=== PATIENT | male | born 1975 | race Caucasian/White ===

== ENCOUNTER 2016-07-12 06:16 | Emergency (ER) | payer SELFPAY ==
[2016-07-12 06:47] VITALS: BP 169/128; PULSE 84; RESP 16; TEMP 97.8; O2SAT 99
== END 2016-07-12 07:29 | disposition left against medical advice (07) ==
LOC: C.ER 06:16
DX: Z02.89 Encounter for other administrative examinations (principal); M25.511 Pain in right shoulder